=== PATIENT | female | born 1960 | race Caucasian/White ===

== ENCOUNTER 2023-11-15 18:29 | Emergency (ER) | payer OTHER, SELFPAY ==
[2023-11-15 18:39] VITALS: BP 133/84
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
== END 2023-11-15 22:00 | disposition home or self-care (01) ==
LOC: EMR 18:29
PROVIDERS: EMERGENCY PHYSICIAN Emergency Medicine; FAMILY PHYSICIAN Family Medicine
DX: T59.811A Toxic effect of smoke, accidental (unintentional), initial encounter (principal); R03.0 Elevated blood-pressure reading, without diagnosis of hypertension
CPT/HCPCS: 99283; 71046

== ENCOUNTER 2024-11-18 06:24 | Day surgery (SDC) | payer OTHER, SELFPAY | END 2024-11-18 08:59 | disposition home or self-care (01) | LOC: GI 06:24 | PROVIDERS: ATTENDING PHYSICIAN Surgery | DX: K57.30 Diverticulosis of large intestine without perforation or abscess without bleeding (principal); R19.5 Other fecal abnormalities | CPT/HCPCS: 45378 ==